=== PATIENT | male | born 1950 | race Caucasian/White ===

== ENCOUNTER 2024-10-24 14:43 | Outpatient (CLI) | payer MEDICARE, OTHER | END 2024-10-24 14:44 | disposition home or self-care (01) | LOC: CSHRAD 14:43 | PROVIDERS: ATTEND Nurse Practitioner Family | DX: N30.01 Acute cystitis with hematuria (principal) | CPT/HCPCS: 71046 ==

== ENCOUNTER 2024-11-07 09:29 | Outpatient (CLI) | payer MEDICARE, OTHER | END 2024-11-07 09:30 | disposition home or self-care (01) | LOC: CSHWCC 09:29 | PROVIDERS: ATTEND Nurse Practitioner Family | DX: N30.40 Irradiation cystitis without hematuria (principal) | CPT/HCPCS: G0277 ==

== ENCOUNTER 2024-11-08 08:41 | Outpatient (CLI) | payer MEDICARE, OTHER | END 2024-11-08 08:42 | disposition home or self-care (01) | LOC: CSHWCC 08:41 | PROVIDERS: ATTEND Nurse Practitioner Family | DX: N30.40 Irradiation cystitis without hematuria (principal) | CPT/HCPCS: G0277 ==

== ENCOUNTER 2024-11-15 10:00 | Outpatient (CLI) | payer MEDICARE, OTHER | END 2024-11-15 10:01 | disposition home or self-care (01) | LOC: CSHWCC 10:00 | PROVIDERS: ATTEND Nurse Practitioner Family | DX: N30.40 Irradiation cystitis without hematuria (principal) | CPT/HCPCS: G0277 ==

== ENCOUNTER 2024-11-16 10:14 | Outpatient (CLI) | payer MEDICARE, OTHER | END 2024-11-16 10:15 | disposition home or self-care (01) | LOC: CSHWCC 10:14 | PROVIDERS: ATTEND Nurse Practitioner Family | DX: N30.40 Irradiation cystitis without hematuria (principal) | CPT/HCPCS: G0277 ==

== ENCOUNTER 2025-01-19 09:04 | Outpatient (CLI) | payer MEDICARE, OTHER | END 2025-01-19 09:05 | disposition home or self-care (01) | LOC: CSHWCC 09:04 | PROVIDERS: ATTEND Nurse Practitioner Family | DX: N30.40 Irradiation cystitis without hematuria (principal); M54.2 Cervicalgia ==